=== PATIENT | male | born 1945 | race Caucasian/White ===

== ENCOUNTER 2016-08-20 10:42 | Emergency (ER) | payer MEDICARE, OTHER ==
[~2016-08-20] VITALS: Ht 175.3 cm; Wt 120.0 kg
[~2016-08-20 10:42] MED LIST: AMIT100 PO; ASPI81 PO; CYAN1000P IM; FINA5TAB77 PO; GABA300C3 PO; GLUC10TA3 PO; ISOS30 PO; PLAV75TA PO; RAPA8CAP PO; TERA5CAP3 PO; ZOCO40TA PO
[2016-08-20 10:48] VITALS: BP 138/88; PULSE 115; RESP 18; TEMP 98.2; O2SAT 97
--- NOTE | 2016-08-20 11:28 | PD ---
HPI Chief Complaint: Lump, Cyst, Hernia Time Seen by Provider: 11:26 Travel History International Travel<30 days: No Contact w/Intl Traveler<30days: No Traveled to known affect area: No History of Present Illness HPI Patient is a 70-year-old male presenting to emergency for evaluation of a left breast lump. Patient states it's been there for approximately a year and a half , he had a mammogram performed by the [place] which was negative. He states for the last 2 days it has become painful and red. He denies any fever, chills, nausea or vomiting, chest pain or shortness breath. PFSH Past Medical History Hx Anticoagulant Therapy: Yes (ASA 81 MG, PLAVIX) ADHD: No Asthma: Yes Blood Disorders: No Cancer: No Cardiac Catheterization: Yes (X 7) Cardiovascular Problems: Yes (SD X 1 ) High Cholesterol: Yes Chest Pain: Yes Congestive Heart Failure: Yes COPD: Yes Cerebrovascular Accident: Yes (TIA) Coronary Artery Disease: Yes Diabetes: Yes Patient Takes Glucophage: No Diminished Hearing: Yes (HEARING AIDS) Endocrine: No Gastrointestinal Disorders: No Hypertension: Yes Immune Disorder: No Kidney Stones: Yes Musculoskeletal: No Neurologic: Yes (STROKE) Psychiatric: No Reproductive: No Respiratory: Yes (EMPHYSEMA, CHF) Immunizations Current: Yes (WHOOPING COUGH 5 YRS. AGO) Myocardial Infarction: Yes Past Surgical History Abdominal Surgery: Yes (BILATERAL INGUINAL HERNIA REPAIR) AICD: No Arteriovenous Shunt: No Cardiac Surgery: Yes (HEART CATH 04/02- STENTS X 3) Coronary Artery Bypass Graft: Yes (stent x 3) Coronary Stent: Yes (X3) Insulin Pump: No Joint Replacement: No Pacemaker: No Other Surgery: Yes (PILONIDAL CYST REMOVED) Family History Family Hypercholesterolemia: Yes Social History Alcohol Use: No Tobacco Use: Yes (QUIT 20+ YEARS AGO) Substance Use: No Allergies-Medications (Allergen,Severity, Reaction): Coded Allergies: No Known Allergies (Verified , 08/20/16) Reported Meds & Prescriptions Reported Meds & Active Scripts Active Reported Spiriva Respimat Inh (Tiotropium Inh) 1.25 Mcg/Act Aero 2 Puff INH DAILY 1.25 mcg = 1 inhalation Terazosin (Terazosin HCl) 5 Mg Cap 5 Mg PO HS Zocor (Simvastatin) 40 Mg Tab 40 Mg PO DAILY Rapaflo (Silodosin) 8 Mg Cap 8 Mg PO DAILY Proair Hfa 8.5 GM Inh (Albuterol Sulfate) 90 Mcg/Act Aer 2 Puff INH Q4-6H PRN 108 mcg/actuation Potassium Citrate ER 15 Meq Tab 30 Meq PO DAILY Plavix (Clopidogrel Bisulfate) 75 Mg Tab 75 Mg PO DAILY Nitrostat SL (Nitroglycerin) 0.4 Mg Subl 0.4 Mg SL DIRECTED PRN 1 tablet under the tongue as needed for chest pain. Repeat every 5 minutes for a total of 3 DOSES or call 911 if NO relief. Mirapex (Pramipexole Dihydrochloride) 0.125 Mg Tab 0.125 Mg PO DAILY Lisinopril 5 Mg Tab 5 Mg PO DAILY Lasix (Furosemide) 20 Mg Tab 20 Mg PO DAILY Glucotrol (Glipizide) 10 Mg Tab 10 Mg PO DAILY Take 30 minutes before a meal Proscar (Finasteride) 5 Mg Tab 5 Mg PO DAILY Do not crush. Aspirin 81 (Aspirin) 81 Mg Tabdr 81 Mg PO DAILY Amitriptyline (Amitriptyline HCl) 100 Mg Tab 100 Mg PO DAILY Advair Diskus Inh (Fluticasone-Salmeterol Inh) 100-50 Mcg/Blist Aer Unknown Dose INH BID Rinse mouth after use. Review of Systems Except as stated in HPI: all other systems reviewed are Neg Musculoskeletal: Positive: Pain Skin: Positive Lumps Physical Exam Narrative GENERAL: Well-nourished, well-developed patient. SKIN: Warm and dry. 1 cm erythematous cyst to left breast at the 4 o'clock position. Tender to palpation. Fluctuant. HEAD: Normocephalic. EYES: No scleral icterus. No injection or drainage. NECK: Supple, trachea midline. No JVD or lymphadenopathy. CARDIOVASCULAR: Regular rate and rhythm without murmurs, gallops, or rubs. RESPIRATORY: Breath sounds equal bilaterally. No accessory muscle use. GASTROINTESTINAL: Abdomen soft, non-tender, nondistended. MUSCULOSKELETAL: No cyanosis, or edema. BACK: Nontender without obvious deformity. No CVA tenderness. Data Data Last Documented VS Vital Signs Date Time Temp Pulse Resp B/P Pulse Ox O2 Delivery O2 Flow Rate FiO2 08/20/16 10:48 98.2 115 18 138/88 97 Orders Wound Culture And Gram Stain (08/20/16 11:25) Lidocai-Epi 1%-1:100,000 Inj (Xylocaine- (08/20/16 11:30) MDM Medical Decision Making Medical Screen Exam Complete: Yes Emergency Medical Condition: Yes Interpretation(s) Vital Signs Date Time Temp Pulse Resp B/P Pulse Ox O2 Delivery O2 Flow Rate FiO2 08/20/16 10:48 98.2 115 18 138/88 97 Differential Diagnosis Sebaceous cyst versus abscess versus cellulitis versus malignancy versus other Narrative Course Patient is a 70-year-old male presenting to emergency department for evaluation of a cyst to his left breast that has been there for approximately year and a half and gotten painful and red over the last 2 days. Please see procedure for for I&D. Waxy white drainage was expressed from the abscess. Wound culture ordered and sent. Patient tolerated procedure well. Patient be placed on Keflex prophylactically. Patient was encouraged to follow-up with his primary doctor return to emergency department for any new or worsening symptoms. Patient verbalized understanding of these instructions. Patient is stable for discharge. Procedures Procedure Narrative After the risks and benefits were discussed the following procedure was performed: INCISION AND DRAINAGE OF ABSCESS: The area was prepped and was sterilely draped. A subcutaneous wheal of 1 % Xylocaine with a total number 2mL was used to anesthetize the area. The area was properly anesthetized. A number 11 scalpel was used to make a 1 -cm incision across the area of the abscess. Cultures were obtained. The abscess was drained an irrigated with normal saline. LACERATION LOCATION: Left breast status post I&D LENGTH: 1 centimeter NUMBER OF STITCHES/ADOLFO: 2 stitches REPAIR: The area of the laceration was prepped with Betadine and sterilely draped. The laceration was infiltrated with 1% Xylocaine. The wound was closed using 4-0 Vicryl. This was a 1 layer repair. A sterile dressing was applied. The patient was advised to keep the dressing clean and dry. Patient tolerated the procedure well. Diagnosis Primary Impression: Sebaceous cyst of breast Qualified Code: N60.82 - Sebaceous cyst of breast, left Additional Impressions: Cellulitis Qualified Code: L03.818 - Cellulitis of other specified site Encounter for incision and drainage procedure Referrals: Primary Care Physician Patient Instructions: Abscess (GEN), Abscess Incision and Drainage (ED), Cellulitis (ED), Cyst (ED), General Instructions Additional Instructions: Stitches will dissolve in approximately 7 days Complete full course of antibiotics as directed Keep area clean and dry, cover with Band-Aid Return to emergency department for any new or worsening symptoms such as increased redness, swelling, foul odor or drainage, fevers and chills. Follow-up with your primary doctor Med/Other Pt SpecificInfo: Prescription(s) given Scripts Oxycodone-Acetaminophen (Percocet)5-325 mg Tab1 Tab PO Q6H PRN (PAIN) #7 TAB Ref 0 Prov:Michael Stacy MD 08/20/16 Cephalexin (Keflex)500 Mg Tup017 Mg PO Q12H 5 Days Ref 0 Prov:Melany Luu 08/20/16 Disposition: 01 DISCHARGE HOME Condition: Stable Melany Luu Aug 20, 2016 11:28
[2016-08-20] MEDS ORDERED: LIDOCAINE 1%/EPINEPHrine 1:100,000 SOLN 20 ML VIAL INFIL ONE (11:30)
[2016-08-20] MEDS ORDERED: TIOT1AER2 INH (11:31)
[2016-08-20] MEDS ORDERED: LISI-519 PO (11:31)
[2016-08-20] MEDS ORDERED: POTA4.25 PO (11:31)
[2016-08-20] MEDS ORDERED: MIRA0.12 PO (11:31)
[2016-08-20] MEDS ORDERED: NITR0.4S SL (11:31)
[2016-08-20] MEDS ORDERED: BYST5TAB2 PO (11:31)
[2016-08-20] MEDS ORDERED: ALBUAER3 INH (11:31)
[2016-08-20] MEDS ORDERED: ASPI-110 PO (11:31)
[2016-08-20] MEDS ORDERED: TERA5CAP3 PO (11:31)
[2016-08-20] MEDS ORDERED: PROS5TAB PO (11:31)
[2016-08-20] MEDS ORDERED: ZOCO40TA PO (11:31)
[2016-08-20] MEDS ORDERED: AMIT100T2 PO (11:31)
[2016-08-20] MEDS ORDERED: RAPA8CAP PO (11:31)
[2016-08-20] MEDS ORDERED: PLAV75TA29 PO (11:31)
[2016-08-20] MEDS ORDERED: GLUC10TA3 PO (11:31)
[2016-08-20] MEDS ORDERED: ADVA100A INH (11:31)
[2016-08-20] MEDS ORDERED: FURO1TAB62 PO (11:31)
[2016-08-20] MEDS ORDERED: CEPH-460 PO (12:01)
[2016-08-20] MEDS ORDERED: PERC5TAB12 PO (12:02)
== END 2016-08-20 12:30 | disposition home or self-care (01) ==
LOC: PHED 10:42 → PHEFT 12:30
DX: N60.82 Other benign mammary dysplasias of left breast (principal); L03.90 Cellulitis, unspecified; J45.909 Unspecified asthma, uncomplicated; E11.9 Type 2 diabetes mellitus without complications; I10 Essential (primary) hypertension; Z79.01 Long term (current) use of anticoagulants
CPT/HCPCS: 10060; 86403; 87070; 87205

== ENCOUNTER 2017-06-27 10:06 | Emergency (ER) | payer MEDICARE, OTHER ==
[~2017-06-27] VITALS: Ht 175.3 cm; Wt 123.0 kg
[~2017-06-27 10:06] MED LIST changes: +ADVA100A INH; +ALBUAER3 INH; -AMIT100 PO; +AMIT100T2 PO; +ASPI1TAB57 PO; -ASPI81 PO; +CEPH-460 PO; -CYAN1000P IM; -FINA5TAB77 PO; +FURO1TAB62 PO; -GABA300C3 PO; -ISOS30 PO; +LISI-519 PO; +MIRA0.12 PO; +NITR0.4S SL; +PERC5TAB12 PO; -PLAV75TA PO; +PLAV75TA29 PO; +POTA4.25 PO; +PROS5TAB PO; +TIOT1AER2 INH
[2017-06-27 10:08] VITALS: BP 150/74; PULSE 98; RESP 20; TEMP 98.4; O2SAT 98
--- NOTE | 2017-06-27 10:25 | PD ---
HPI Chief Complaint: Cold / Flu Symptoms Time Seen by Provider: 10:14 Travel History International Travel<30 days: No Contact w/Intl Traveler<30days: No Traveled to known affect area: No History of Present Illness HPI 71-year-old male presents to the emergency department for evaluation of cold symptoms that started 2 days ago. Patient reports cough, congestion, rib pain with coughing only. He denies any fevers or chills. Patient presents with history of COPD and states this is his typical COPD exacerbation. He denies any chest pain or shortness of breath without coughing. No abdominal pain. Nausea, vomiting, diarrhea. Patient states that normally his doctor will give him a prescription for cough medicine, prednisone, antibiotic when he has these symptoms. No exacerbating or alleviating factors. Moderate severity. He has been using albuterol nebulizer and inhaler at home with improvement. PFSH Past Medical History Hx Anticoagulant Therapy: Yes (ASA 81 MG, PLAVIX) ADHD: No Asthma: Yes Blood Disorders: No Cancer: No Cardiac Catheterization: Yes (X 7) Cardiovascular Problems: Yes (3 stents) High Cholesterol: Yes Chest Pain: Yes Congestive Heart Failure: Yes COPD: Yes Cerebrovascular Accident: Yes (TIA) Coronary Artery Disease: Yes Diabetes: Yes (Metformin, Glypezide) Diminished Hearing: Yes (HEARING AIDS) Endocrine: No Gastrointestinal Disorders: No Hypertension: Yes Immune Disorder: No Kidney Stones: Yes Musculoskeletal: No Neurologic: Yes (STROKE) Psychiatric: No Reproductive: No Respiratory: Yes (COPD) Immunizations Current: Yes (WHOOPING COUGH 5 YRS. AGO) Myocardial Infarction: Yes Past Surgical History Abdominal Surgery: Yes (BILATERAL INGUINAL HERNIA REPAIR) AICD: No Arteriovenous Shunt: No Cardiac Surgery: Yes (HEART CATH 04/02- STENTS X 3) Coronary Artery Bypass Graft: Yes (stent x 3) Coronary Stent: Yes (X3) Insulin Pump: No Joint Replacement: No Pacemaker: No Other Surgery: Yes (PILONIDAL CYST REMOVED) Family History Family Hypercholesterolemia: Yes Social History Alcohol Use: No Tobacco Use: Yes (QUIT 20+ YEARS AGO) Substance Use: No Allergies-Medications (Allergen,Severity, Reaction): Coded Allergies: No Known Allergies (Verified Adverse Reaction, Unknown, 06/27/17) Reported Meds & Prescriptions Reported Meds & Active Scripts Active Percocet (Oxycodone-Acetaminophen) 5-325 mg Tab 1 Tab PO Q6H PRN Reported Spiriva Respimat Inh (Tiotropium Inh) 1.25 Mcg/Act Aero 2 Puff INH DAILY 1.25 mcg = 1 inhalation Terazosin (Terazosin HCl) 5 Mg Cap 5 Mg PO HS Zocor (Simvastatin) 40 Mg Tab 40 Mg PO DAILY Rapaflo (Silodosin) 8 Mg Cap 8 Mg PO DAILY Proair Hfa 8.5 GM Inh (Albuterol Sulfate) 90 Mcg/Act Aer 2 Puff INH Q4-6H PRN 108 mcg/actuation Potassium Citrate ER 15 Meq Tab 30 Meq PO DAILY Plavix (Clopidogrel Bisulfate) 75 Mg Tab 75 Mg PO DAILY Nitrostat SL (Nitroglycerin) 0.4 Mg Subl 0.4 Mg SL DIRECTED PRN 1 tablet under the tongue as needed for chest pain. Repeat every 5 minutes for a total of 3 DOSES or call 911 if NO relief. Mirapex (Pramipexole Dihydrochloride) 0.125 Mg Tab 0.125 Mg PO DAILY Lisinopril 5 Mg Tab 5 Mg PO DAILY Lasix (Furosemide) 20 Mg Tab 20 Mg PO DAILY Glucotrol (Glipizide) 10 Mg Tab 10 Mg PO DAILY Take 30 minutes before a meal Proscar (Finasteride) 5 Mg Tab 5 Mg PO DAILY Do not crush. Aspirin 81 (Aspirin) 81 Mg Tabdr 81 Mg PO DAILY Amitriptyline (Amitriptyline HCl) 100 Mg Tab 100 Mg PO DAILY Advair Diskus Inh (Fluticasone-Salmeterol Inh) 100-50 Mcg/Blist Aer Unknown Dose INH BID Rinse mouth after use. Review of Systems Except as stated in HPI: all other systems reviewed are Neg Physical Exam Narrative GENERAL: Well-nourished, well-developed male patient, ambulatory. Afebrile. SKIN: Focused skin assessment warm/dry. HEAD: Normocephalic. Atraumatic. EYES: No scleral icterus. No injection or drainage. NECK: Supple, trachea midline. No JVD or lymphadenopathy. CARDIOVASCULAR: Regular rate and rhythm without murmurs, gallops, or rubs. RESPIRATORY: Breath sounds equal bilaterally. No accessory muscle use. Dry, hacking cough noted. Lungs sounds are clear to auscultation. GASTROINTESTINAL: Abdomen soft, non-tender, nondistended. MUSCULOSKELETAL: No cyanosis, or edema. BACK: Nontender without obvious deformity. No CVA tenderness. Data Data Last Documented VS Vital Signs Date Time Temp Pulse Resp B/P (MAP) Pulse Ox O2 Delivery O2 Flow Rate FiO2 06/27/17 10:08 98.4 98 20 150/74 (99) 98 Orders Orders Chest, Single Ap (06/27/17 ) Prednisone (Deltasone) (06/27/17 10:30) MDM Medical Decision Making Medical Screen Exam Complete: Yes Emergency Medical Condition: Yes Medical Record Reviewed: Yes Interpretation(s) chest x-ray - CONCLUSION: No acute disease. Differential Diagnosis Bronchitis versus COPD exacerbation versus pneumonia versus URI Narrative Course 71-year-old male presents to the emergency department for evaluation of cough, COPD exacerbation for 2 days. He does appear well on exam. Patient is given prednisone 40 mg by mouth. Chest x-ray is ordered and pending. Chest x-ray [-]. Diagnosis Primary Impression: Upper respiratory infection Qualified Codes: J06.9 - Acute upper respiratory infection, unspecified Additional Impression: COPD (chronic obstructive pulmonary disease) Qualified Codes: J44.9 - Chronic obstructive pulmonary disease, unspecified Referrals: Primary Care Physician call for appointment Patient Instructions: COPD (Chronic Obstructive Pulmonary Disease) (ED), General Instructions, Upper Respiratory Infection (ED) Additional Instructions: Take antibiotic as directed until gone. Take prednisone as instructed. Start this tomorrow. Take cough syrup as directed as needed for cough. Caution this can make you drowsy. Follow-up with your primary care physician. Return to the emergency department for any acute worsening of symptoms. Med/Other Pt SpecificInfo: Prescription(s) given Scripts Codeine Phosphate/Guaifenesin (Guaifen-Codeine 100-10 mg/5 ml) 10 Mg-100 Mg/5 Ml Liquid 5-10 ML PO Q6HR Y for COUGH, #120 ML Prov: Mari Logan 06/27/17 Prednisone (Prednisone) 20 Mg Tab 40 MG PO DAILY for 5 Days, #10 TAB 0 Refills Prov: Mari Logan 06/27/17 Azithromycin (Zithromax Z-Tye) 250 Mg Dspk 250 MG PO DIRECTED for Infection, #1 DSPK 0 Refills 500 MG (2 tabs) day 1, then 1 tab days 2-5. Prov: Mari Logan 06/27/17 Disposition: 01 DISCHARGE HOME Condition: Stable Mari Logan Jun 27, 2017 10:25
[2017-06-27] MEDS ORDERED: predniSONE 20 MG TAB PO ONE (10:30)
--- NOTE | 2017-06-27 11:05 | RADRPT ---
EXAM DATE/TIME: 06/27/2017 10:40 [facility] COMPARISON: CHEST SINGLE AP, January 02, 2016, 10:32. INDICATIONS : Cough, congestion, chest pain with cough MEDICAL HISTORY : Chronic obstructive pulmonary disease. SURGICAL HISTORY : Cardiac stents ENCOUNTER: Initial ACUITY: 2 days PAIN SCORE: 6/10 LOCATION: Bilateral chest FINDINGS: A single view of the chest demonstrates the lungs to be symmetrically aerated without evidence of mas s, infiltrate or effusion. The cardiomediastinal contours are unremarkable. Osseous structures are intact. CONCLUSION: No acute disease. Obey Metz MD on June 27, 2017 at 11:03 Board Certified Radiologist. This report was verified electronically.
[2017-06-27] MEDS ORDERED: ZITHTAB PO (11:12)
[2017-06-27] MEDS ORDERED: GUAI100S5 PO (11:12)
[2017-06-27] MEDS ORDERED: PRED20 PO (11:12)
== END 2017-06-27 11:16 | disposition home or self-care (01) ==
LOC: PHEFT 10:06
DX: J06.9 Acute upper respiratory infection, unspecified (principal); J44.1 Chronic obstructive pulmonary disease with (acute) exacerbation; E11.9 Type 2 diabetes mellitus without complications; E78.00 Pure hypercholesterolemia, unspecified; I11.0 Hypertensive heart disease with heart failure; I50.9 Heart failure, unspecified; I25.10 Atherosclerotic heart disease of native coronary artery without angina pectoris; I25.2 Old myocardial infarction; Z86.73 Personal history of transient ischemic attack (TIA), and cerebral infarction without residual deficits; Z95.5 Presence of coronary angioplasty implant and graft; Z79.82 Long term (current) use of aspirin; Z95.1 Presence of aortocoronary bypass graft; Z79.84 Long term (current) use of oral hypoglycemic drugs
CPT/HCPCS: 71010; 99284; J7512

== ENCOUNTER 2017-07-04 15:55 | Emergency (ER) | payer MEDICARE, OTHER ==
[~2017-07-04] VITALS: Ht 175.3 cm; Wt 123.0 kg
[~2017-07-04 15:55] MED LIST changes: -CEPH-460 PO; +GUAI100S5 PO; +PRED20 PO; +ZITHTAB PO
[2017-07-04 15:57] VITALS: BP 127/58; PULSE 95; RESP 16; TEMP 98.6; O2SAT 99
--- NOTE | 2017-07-04 16:48 | PD ---
HPI Chief Complaint: Cold / Flu Symptoms Time Seen by Provider: 16:36 Travel History International Travel<30 days: No Contact w/Intl Traveler<30days: No Traveled to known affect area: No History of Present Illness HPI 71 y/o male with productive cough & wheezing 3 days. Patient has a history of COPD. He denies fever or chills. He reports similar symptoms in the past with bronchitis. He denies chest pain, palpitations, shortness of breath. Symptom severity is moderate. No aggravating or alleviating factors. PFSH Past Medical History Hx Anticoagulant Therapy: Yes (ASA 81 MG, PLAVIX) ADHD: No Asthma: Yes Blood Disorders: No Cancer: No Cardiac Catheterization: Yes (X 7) Cardiovascular Problems: Yes (3 stents) High Cholesterol: Yes Chest Pain: Yes Congestive Heart Failure: Yes COPD: Yes Cerebrovascular Accident: Yes (TIA) Coronary Artery Disease: Yes Diabetes: Yes (Metformin, Glypezide) Patient Takes Glucophage: Yes Diminished Hearing: Yes (HEARING AIDS) Endocrine: No Gastrointestinal Disorders: No Hypertension: Yes Immune Disorder: No Kidney Stones: Yes Musculoskeletal: No Neurologic: Yes (STROKE) Psychiatric: No Reproductive: No Respiratory: Yes (COPD) Immunizations Current: Yes (WHOOPING COUGH 5 YRS. AGO) Myocardial Infarction: Yes Influenza Vaccination: No Past Surgical History Abdominal Surgery: Yes (BILATERAL INGUINAL HERNIA REPAIR) AICD: No Arteriovenous Shunt: No Cardiac Surgery: Yes (HEART CATH 04/02- STENTS X 3) Coronary Artery Bypass Graft: Yes (stent x 3) Coronary Stent: Yes (X3) Insulin Pump: No Joint Replacement: No Pacemaker: No Other Surgery: Yes (PILONIDAL CYST REMOVED) Family History Family Hypercholesterolemia: Yes Social History Alcohol Use: No Tobacco Use: No (QUIT 20+ YEARS AGO) Substance Use: No Allergies-Medications (Allergen,Severity, Reaction): Coded Allergies: No Known Allergies (Verified Adverse Reaction, Unknown, 07/04/17) Reported Meds & Prescriptions Reported Meds & Active Scripts Active Tessalon Perles (Benzonatate) 100 Mg Cap 200 Mg PO TID PRN 3 Days Albuterol Neb (Albuterol Sulfate) 2.5 Mg/0.5 Ml Neb 2.5 Mg NEB TID NEB PRN Note: The Albuterol Sulfate Inhalation Solution is concentrated and must be diluted. Read complete instructions carefully before using. Prednisone 20 Mg Tab 40 Mg PO DAILY Take 40 mg (2 tablets) daily for 5 days Levaquin (Levofloxacin) 500 Mg Tablet 500 Mg PO DAILY 7 Days Guaifen-Codeine 100-10 mg/5 ml (Codeine Phosphate/Guaifenesin) 10 Mg-100 Mg/5 Ml Liquid 5-10 Ml PO Q6HR PRN Percocet (Oxycodone-Acetaminophen) 5-325 mg Tab 1 Tab PO Q6H PRN Reported Spiriva Respimat Inh (Tiotropium Inh) 1.25 Mcg/Act Aero 2 Puff INH DAILY 1.25 mcg = 1 inhalation Terazosin (Terazosin HCl) 5 Mg Cap 5 Mg PO HS Zocor (Simvastatin) 40 Mg Tab 40 Mg PO DAILY Rapaflo (Silodosin) 8 Mg Cap 8 Mg PO DAILY Proair Hfa 8.5 GM Inh (Albuterol Sulfate) 90 Mcg/Act Aer 2 Puff INH Q4-6H PRN 108 mcg/actuation Potassium Citrate ER 15 Meq Tab 30 Meq PO DAILY Plavix (Clopidogrel Bisulfate) 75 Mg Tab 75 Mg PO DAILY Nitrostat SL (Nitroglycerin) 0.4 Mg Subl 0.4 Mg SL DIRECTED PRN 1 tablet under the tongue as needed for chest pain. Repeat every 5 minutes for a total of 3 DOSES or call 911 if NO relief. Mirapex (Pramipexole Dihydrochloride) 0.125 Mg Tab 0.125 Mg PO DAILY Lisinopril 5 Mg Tab 5 Mg PO DAILY Lasix (Furosemide) 20 Mg Tab 20 Mg PO DAILY Glucotrol (Glipizide) 10 Mg Tab 10 Mg PO DAILY Take 30 minutes before a meal Proscar (Finasteride) 5 Mg Tab 5 Mg PO DAILY Do not crush. Aspirin 81 (Aspirin) 81 Mg Tabdr 81 Mg PO DAILY Amitriptyline (Amitriptyline HCl) 100 Mg Tab 100 Mg PO DAILY Advair Diskus Inh (Fluticasone-Salmeterol Inh) 100-50 Mcg/Blist Aer Unknown Dose INH BID Rinse mouth after use. Review of Systems Except as stated in HPI: all other systems reviewed are Neg General / Constitutional: No: Fever Eyes: No: Visual changes HENT: No: Headaches Cardiovascular: No: Chest Pain or Discomfort Respiratory: Positive: Cough, Wheezing Gastrointestinal: No: Abdominal Pain Genitourinary: No: Dysuria Physical Exam Narrative GENERAL: Alert and well-appearing 71-year-old male. SKIN: Warm and dry. HEAD: Normocephalic. EYES: No injection or drainage. NECK: Supple, trachea midline. No JVD or lymphadenopathy. CARDIOVASCULAR: Regular rate and rhythm without murmurs, gallops, or rubs. RESPIRATORY: Breath sounds equal bilaterally. No accessory muscle use. Rhonchorous cough. GASTROINTESTINAL: Abdomen soft, non-tender, nondistended. MUSCULOSKELETAL: No cyanosis, or edema. BACK: Nontender without obvious deformity. No CVA tenderness. Data Data Last Documented VS Vital Signs Date Time Temp Pulse Resp B/P (MAP) Pulse Ox O2 Delivery O2 Flow Rate FiO2 07/04/17 15:57 98.6 95 16 127/58 (81) 99 MDM Medical Decision Making Medical Screen Exam Complete: Yes Emergency Medical Condition: Yes Differential Diagnosis bronchitis, PNA, COPD exacerbation Narrative Course 71 y/o male with productive cough & wheezing. He is well appearing. Vital signs are stable. He has a ronchorous cough. No fever. He will be treated for bronchitis, COPD exacerbation. Diagnosis Primary Impression: Bronchitis Additional Impression: COPD with acute bronchitis Referrals: Primary Care Physician Additional Instructions: Medication as prescribed. Follow-up with primary doctor. Scripts Benzonatate (Tessalon Perles) 100 Mg Cap 200 MG PO TID Y for COUGH for 3 Days, CAP 0 Refills Prov: Karen Turpin 07/04/17 Albuterol Neb (Albuterol Neb) 2.5 Mg/0.5 Ml Neb 2.5 MG NEB TID NEB Y for SHORTNESS OF BREATH, #30 NEBULE 0 Refills Note: The Albuterol Sulfate Inhalation Solution is concentrated and must be diluted. Read complete instructions carefully before using. Prov: Karen Turpin 07/04/17 Prednisone (Prednisone) 20 Mg Tab 40 MG PO DAILY, #10 TAB 0 Refills Take 40 mg (2 tablets) daily for 5 days Prov: Karen Turpin 07/04/17 Levofloxacin (Levaquin) 500 Mg Tablet 500 MG PO DAILY for Infection for 7 Days, #7 TAB 0 Refills Prov: Karen Turpin 07/04/17 Disposition: 01 DISCHARGE HOME Condition: Stable Karen Turpin Jul 04, 2017 16:48
[2017-07-04] MEDS ORDERED: LEVA500T33 PO (16:53)
[2017-07-04] MEDS ORDERED: PRED20 PO (16:53)
[2017-07-04] MEDS ORDERED: ALBU.5I NEB (16:53)
[2017-07-04] MEDS ORDERED: BENZ100 PO (16:53)
== END 2017-07-04 17:04 | disposition home or self-care (01) ==
LOC: PHEFT 15:55
DX: J44.9 Chronic obstructive pulmonary disease, unspecified (principal); J20.9 Acute bronchitis, unspecified; I25.10 Atherosclerotic heart disease of native coronary artery without angina pectoris; I50.9 Heart failure, unspecified; E11.9 Type 2 diabetes mellitus without complications; Z79.84 Long term (current) use of oral hypoglycemic drugs; Z79.01 Long term (current) use of anticoagulants; Z95.1 Presence of aortocoronary bypass graft
CPT/HCPCS: 99284

== ENCOUNTER 2017-10-16 10:08 | Emergency (ER) | payer MEDICARE, OTHER ==
[~2017-10-16 10:08] MED LIST changes: +ALBU.5I NEB; +BENZ100 PO; +LEVA500T33 PO; -ZITHTAB PO
[2017-10-16 10:13] VITALS: BP 150/80; PULSE 104; RESP 16; TEMP 97.6; O2SAT 94
[2017-10-16] MEDS ORDERED: METF500T PO (10:45)
[2017-10-16] MEDS ORDERED: ISOS30TA3 PO (10:45)
[2017-10-16] MEDS ORDERED: PRAM0.12 PO (10:45)
[2017-10-16] MEDS ORDERED: LOSA50TA PO (10:45)
[2017-10-16] MEDS ORDERED: TAMS0.4C4 PO (10:45)
[2017-10-16] MEDS ORDERED: ATEN25TA PO (10:47)
--- NOTE | 2017-10-16 11:39 | PD ---
HPI Chief Complaint: Dizziness Time Seen by Provider: 11:35 Travel History International Travel<30 days: No Contact w/Intl Traveler<30days: No Traveled to known affect area: No History of Present Illness HPI 71-year-old male patient with history of CAD status post 3 stents, hypertension , diabetes, TIAs, presents to the ER today brought in by his because he has had episodes of dizziness and disorientation 2 days ago, and he states that these episodes have come and gone in the last few days although he is not currently having any symptoms. He denies any chest pains, shortness of breath, fevers, vomiting, or other symptoms. He states that on the day when it happened , it was before he visited his doctor's office, and had eaten, was told by his doctor to come to the ER yesterday to be evaluated but he states that he did not want to wait yesterday and came back today. He also had talked to the office of his biomedical engineering professor and was also told to be evaluated in the ER. Modifying Factors: None Associated Signs & Symptoms: Episodes of dizziness and disorientation Risk Factors: Elderly PFSH Past Medical History Hx Anticoagulant Therapy: Yes (ASA 81 MG, PLAVIX) ADHD: No Asthma: Yes Blood Disorders: No Cancer: No Cardiac Catheterization: Yes (X 7) Cardiovascular Problems: Yes (3 stents) High Cholesterol: Yes Chest Pain: Yes Congestive Heart Failure: Yes COPD: Yes Cerebrovascular Accident: Yes (TIA) Coronary Artery Disease: Yes Diabetes: Yes (Metformin, Glypezide) Patient Takes Glucophage: Yes Diminished Hearing: Yes (HEARING AIDS) Endocrine: No Gastrointestinal Disorders: No Hypertension: Yes Immune Disorder: No Kidney Stones: Yes Musculoskeletal: No Neurologic: Yes (STROKE) Psychiatric: No Reproductive: No Respiratory: Yes (COPD) Immunizations Current: Yes (WHOOPING COUGH 5 YRS. AGO) Myocardial Infarction: Yes Influenza Vaccination: Yes ?: Not Past Surgical History Abdominal Surgery: Yes (BILATERAL INGUINAL HERNIA REPAIR) AICD: No Arteriovenous Shunt: No Cardiac Surgery: Yes (HEART CATH 04/02- STENTS X 3) Coronary Artery Bypass Graft: Yes (stent x 3) Coronary Stent: Yes (X3) Insulin Pump: No Joint Replacement: No Pacemaker: No Other Surgery: Yes (PILONIDAL CYST REMOVED) Family History Family Hypercholesterolemia: Yes Social History Alcohol Use: No Tobacco Use: No (QUIT 20+ YEARS AGO) Substance Use: No Allergies-Medications (Allergen,Severity, Reaction): Coded Allergies: No Known Allergies (Verified Adverse Reaction, Unknown, 10/16/17) Reported Meds & Prescriptions Reported Meds & Active Scripts Active Albuterol Neb (Albuterol Sulfate) 2.5 Mg/0.5 Ml Neb 2.5 Mg NEB TID NEB PRN Note: The Albuterol Sulfate Inhalation Solution is concentrated and must be diluted. Read complete instructions carefully before using. Reported Atenolol 25 Mg Tab 25 Mg PO DAILY Pramipexole (Pramipexole Dihydrochloride) 0.125 Mg Tab 0.125 Mg PO HS Losartan (Losartan Potassium) 50 Mg Tab 50 Mg PO DAILY Isosorbide Mononitrate ER (Isosorbide Mononitrate) 30 Mg [place] 30 Mg PO DAILY Metformin (Metformin HCl) 500 Mg Tab 500 Mg PO BIDPC Tamsulosin (Tamsulosin HCl) 0.4 Mg Cap 0.4 Mg PO HS Spiriva Respimat Inh (Tiotropium Inh) 1.25 Mcg/Act Aero 2 Puff INH DAILY 1.25 mcg = 1 inhalation Proair Hfa 8.5 GM Inh (Albuterol Sulfate) 90 Mcg/Act Aer 2 Puff INH Q4-6H PRN 108 mcg/actuation Potassium Citrate ER 15 Meq Tab 30 Meq PO DAILY Plavix (Clopidogrel Bisulfate) 75 Mg Tab 75 Mg PO DAILY Nitrostat SL (Nitroglycerin) 0.4 Mg Subl 0.4 Mg SL DIRECTED PRN 1 tablet under the tongue as needed for chest pain. Repeat every 5 minutes for a total of 3 DOSES or call 911 if NO relief. Lasix (Furosemide) 20 Mg Tab 20 Mg PO DAILY Glucotrol (Glipizide) 10 Mg Tab 10 Mg PO DAILY Take 30 minutes before a meal Proscar (Finasteride) 5 Mg Tab 5 Mg PO DAILY Do not crush. Aspirin 81 (Aspirin) 81 Mg Tabdr 81 Mg PO DAILY Amitriptyline (Amitriptyline HCl) 100 Mg Tab 100 Mg PO DAILY Advair Diskus Inh (Fluticasone-Salmeterol Inh) 100-50 Mcg/Blist Aer Unknown Dose INH BID Rinse mouth after use. Review of Systems Except as stated in HPI: all other systems reviewed are Neg Physical Exam Narrative GENERAL: Well-developed elderly white male patient currently and no acute distress. Awake and oriented 3. SKIN: Focused skin assessment warm/dry. HEAD: Atraumatic. Normocephalic. EYES: Pupils equal and round. No scleral icterus. No injection or drainage. ENT: No nasal bleeding or discharge. Mucous membranes pink and moist. NECK: Trachea midline. No JVD. Supple. CARDIOVASCULAR: Regular rate and rhythm. No murmur appreciated. RESPIRATORY: No accessory muscle use. Clear to auscultation. Breath sounds equal bilaterally. GASTROINTESTINAL: Abdomen soft, non-tender, nondistended. Hepatic and splenic margins not palpable. MUSCULOSKELETAL: No obvious deformities. No clubbing. No cyanosis. No edema. NEUROLOGICAL: Awake and alert. No obvious cranial nerve deficits. Motor grossly within normal limits. Normal speech. PSYCHIATRIC: Appropriate mood and affect; insight and judgment normal. Data Data Last Documented VS Vital Signs Date Time Temp Pulse Resp B/P (MAP) Pulse Ox O2 Delivery O2 Flow Rate FiO2 10/16/17 11:52 93 16 145/77 (99) 93 16 133/65 (87) 93 16 149/67 (94) 10/16/17 10:13 97.6 94 Orders Orders Electrocardiogram (10/16/17 11:35) Complete Blood Count With Diff (10/16/17 11:35) Comprehensive Metabolic Panel (10/16/17 11:35) Ckmb (Isoenzyme) Profile (10/16/17 11:35) Troponin I (10/16/17 11:35) Urinalysis - C+S If Indicated (10/16/17 11:35) Ct Brain W/O Iv Contrast(Rout) (10/16/17 11:35) Ecg Monitoring (10/16/17 11:35) Iv Access Insert/Monitor (10/16/17 11:35) Oximetry (10/16/17 11:35) Sodium Chloride 0.9% Flush (Ns Flush) (10/16/17 11:45) Orthostatic Vital Signs (10/16/17 11:35) Urine Culture (10/16/17 12:15) Ed Discharge Order (10/16/17 13:07) Labs Laboratory Tests Test 10/16/17 11:45 10/16/17 12:15 White Blood Count 5.8 TH/MM3 Red Blood Count 4.85 MIL/MM3 Hemoglobin 14.3 GM/DL Hematocrit 44.0 % Mean Corpuscular Volume 90.7 FL Mean Corpuscular Hemoglobin 29.5 PG Mean Corpuscular Hemoglobin Concent 32.5 % Red Cell Distribution Width 12.7 % Platelet Count 240 TH/MM3 Mean Platelet Volume 7.5 FL Neutrophils (%) (Auto) 68.4 % Lymphocytes (%) (Auto) 20.0 % Monocytes (%) (Auto) 9.7 % Eosinophils (%) (Auto) 0.8 % Basophils (%) (Auto) 1.1 % Neutrophils # (Auto) 3.9 TH/MM3 Lymphocytes # (Auto) 1.1 TH/MM3 Monocytes # (Auto) 0.6 TH/MM3 Eosinophils # (Auto) 0.0 TH/MM3 Basophils # (Auto) 0.1 TH/MM3 CBC Comment DIFF FINAL Differential Comment Blood Urea Nitrogen 22 MG/DL Creatinine 0.95 MG/DL Random Glucose 126 MG/DL Total Protein 7.3 GM/DL Albumin 3.4 GM/DL Calcium Level 9.0 MG/DL Alkaline Phosphatase 103 U/L Aspartate Amino Transf (AST/SGOT) 16 U/L Alanine Aminotransferase (ALT/SGPT) 27 U/L Total Bilirubin 0.2 MG/DL Sodium Level 137 MEQ/L Potassium Level 4.1 MEQ/L Chloride Level 105 MEQ/L Carbon Dioxide Level 25.4 MEQ/L Anion Gap 7 MEQ/L Estimat Glomerular Filtration Rate 78 ML/MIN Total Creatine Kinase 78 U/L Troponin I LESS THAN 0.02 NG/ML Urine Collection Type CLEAN CATCH Urine Color YELLOW Urine Turbidity SL CLOUDY Urine pH 6.0 Urine Specific [place] 1.025 Urine Protein NEG mg/dL Urine Glucose (UA) NEG mg/dL Urine Ketones NEG mg/dL Urine Occult Blood SMALL Urine Nitrite POS Urine Bilirubin NEG Urine Urobilinogen 0.2 MG/DL Urine Leukocyte Esterase MOD Urine RBC 10-14 /hpf Urine WBC 100-200 /hpf Urine WBC Clumps FEW Urine Squamous Epithelial Cells 0-5 /hpf Urine Amorphous Sediment FEW Urine Bacteria MOD /hpf Microscopic Urinalysis Comment CULTURE INDICATED Urine Collection Time 1215 MDM Medical Decision Making Medical Screen Exam Complete: Yes Emergency Medical Condition: Yes Medical Record Reviewed: Yes Interpretation(s) EKG shows A. fib at a rate of 90 bpm with a right bundle branch block pattern. No signs of acute ST elevations or depressions. Laboratory Tests Test 10/16/17 11:45 4/21/18 12:15 Monocytes (%) (Auto) 9.7 % (0.0-8.0) Blood Urea Nitrogen 22 MG/DL (7-18) Random Glucose 126 MG/DL (74-106) Estimat Glomerular Filtration Rate 78 ML/MIN (>89) Troponin I LESS THAN 0.02 NG/ML Urine Occult Blood SMALL (NEG) Urine Nitrite POS (NEG) Urine Leukocyte Esterase MOD (NEG) Urine RBC 10-14 /hpf (0-3) Urine WBC 100-200 /hpf (0-5) Urine WBC Clumps FEW (NONE) Urine Bacteria MOD /hpf (NONE) Last [address] 10/16/17 1135 Signed Impressions: Service Date/Time: Wednesday, October 16, 2017 12:17 - CONCLUSION: Negative noncontrasted CT Nabil Fontenot MD Differential Diagnosis Hypokalemia ischemic episodes versus dysrhythmias versus acute intracranial processes versus dehydration versus metabolic issues Narrative Course CT the brain did not show any signs of acute intracranial processes. He does have a UTI which could be making him feel more disoriented. His lab work was otherwise fairly unremarkable. Cardiac enzymes are negative. Case was discussed with Dr. Lopez who is covering for his biomedical engineering professor, and he states that considering that the patient is having atrial fibrillation, patient should be on anticoagulation. He states that as long as the patient has not had his stents in the last year, patient can go on Eliquis. He would take him off of aspirin and Plavix meanwhile. I have talked to the patient and he states that his stents were many years ago. He has had no recent catheterization or stents in the last year. The patient will be released with scripts for Eliquis for the atrial fibrillation which may be new onset at this point. We will treat his UTI. We will have him eat on a regular basis to avoid any hypoglycemic episodes, and have him follow-up with his primary care physician and his biomedical engineering professor. Return for any worsening in symptoms as needed. I have had a discussion with him regarding possible risk of blood thinners like Eliquis, he should return for any abnormal bleeding, and as needed. Patient states understanding as well regarding risk and versus benefits of starting this medication. Diagnosis Primary Impression: New onset a-fib Additional Impression: UTI (urinary tract infection) Med/Other Pt SpecificInfo: Prescription(s) given, Med Stopped (Aspirin and Plavix) Scripts Apixaban (Eliquis) 5 Mg Tab 5 MG PO BID for Blood Clot Prevention, #20 TAB 0 Refills Prov: Kenn Andrew MD 10/16/17 Sulfamethoxazole-Trimethoprim (Bactrim DS) 800-160 Mg Tab 1 TAB PO BID for Infection, #14 TAB 0 Refills Prov: Kenn Andrew MD 10/16/17 Disposition: 01 DISCHARGE HOME Condition: Stable Kenn Andrew MD Oct 16, 2017 11:39
[2017-10-16] MEDS ORDERED: SODIUM CHLORIDE 0.9% FLUSH 10 ML FLUSH IVF PRN (11:45)
[2017-10-16 11:52] VITALS: BP_SYST 133; BP_SYST 145; BP_SYST 149; BP_DIAS 65; BP_DIAS 67; BP_DIAS 77; RESP 16
[2017-10-16 12:02] LABS: AUTOMATED NEUTROPHIL # 3.9 TH/MM3 (1.8-7.7); BASOPHIL # 0.1 TH/MM3 (0-0.2); BASOPHIL % 1.1 % (0.0-2.0); EOSINOPHIL % 0.8 % (0.0-4.0); HEMOGLOBIN 14.3 GM/DL (13.0-17.0); LYMPHOCYTE # 1.1 TH/MM3 (1.0-4.8); MEAN CELL VOLUME 90.7 FL (80.0-100.0); MEAN CORPUSCULAR HEMOGLOBIN 29.5 PG (27.0-34.0); MEAN CORPUSCULAR HGB CONC 32.5 % (32.0-36.0); MEAN PLATELET VOLUME 7.5 FL (7.0-11.0); MONO % 9.7 % (0.0-8.0); MONOCYTE # 0.6 TH/MM3 (0-0.9); NEUT % 68.4 % (16.0-70.0); PLATELET COUNT 240 TH/MM3 (150-450); RED BLOOD COUNT 4.85 MIL/MM3 (4.50-5.90); RED CELL DISTRIBUTION WIDTH 12.7 % (11.6-17.2); WHITE BLOOD COUNT 5.8 TH/MM3 (4.0-11.0)
[2017-10-16 12:13] LABS: CHLORIDE 105 MEQ/L (98-107); SODIUM (NA) 137 MEQ/L (136-145)
[2017-10-16 12:17] LABS: ALBUMIN 3.4 GM/DL (3.4-5.0); BICARBONATE 25.4 MEQ/L (21.0-32.0); BLOOD UREA NITROGEN 22 MG/DL (7-18); GLUCOSE,RANDOM 126 MG/DL (74-106)
[2017-10-16 12:20] LABS: ALT (GPT) 27 U/L (12-78); AST (GOT) 16 U/L (15-37); CREATININE 0.95 MG/DL (0.60-1.30); GLOMERULAR FILTRATION RATE 78 ML/MIN (>89)
[2017-10-16 12:21] LABS: TOTAL BILIRUBIN ADULT 0.2 MG/DL (0.2-1.0)
[2017-10-16 12:22] LABS: BILIRUBIN, URINE NEG (NEG); BLOOD, URINE SMALL (NEG); GLUCOSE,URINE NEG (NEG); KETONE, URINE NEG (NEG); NITRITE,URINE POS (NEG); URINE COLOR YELLOW (YELLW/STRAW); URINE LEUKOCYTE ESTERASE MOD (NEG)
[2017-10-16 12:22] LABS: TOTAL PROTEIN 7.3 GM/DL (6.4-8.2)
[2017-10-16 12:23] LABS: ALKALINE PHOSPHATASE 103 U/L (45-117)
[2017-10-16 12:25] LABS: TROPONIN I LESS THAN 0.02 NG/ML (0.02-0.05)
[2017-10-16 12:30] LABS: BACTERIA, URINE MOD /hpf; WBC, URINE 100-200 /hpf (0-5)
[2017-10-16 12:31] LABS: AMORPHOUS SEDIMENT, URINE FEW; SQUAMOUS EPITHELIAL CELL URINE 0-5 /hpf (0-5); WHITE BLOOD CELL CLUMPS FEW
--- NOTE | 2017-10-16 12:31 | RADRPT ---
EXAM DATE/TIME: 10/16/2017 12:17 [facility] COMPARISON: No previous studies available for comparison. INDICATIONS : Headache, dizziness. RADIATION DOSE: 62.78 CTDIvol (mGy) MEDICAL HISTORY : Cardiovascular disease. Hypercholesterolemia. Hypertension.CAD,COPD SURGICAL HISTORY : CABG Ing hernia ENCOUNTER: Initial ACUITY: 2 days PAIN SCALE: 7/10 LOCATION: cranial TECHNIQUE: Multiple contiguous axial images were obtained of the head. Using automated exposure control and adj ustment of the mA and/or kV according to patient size, radiation dose was kept as low as reasonably a chievable to obtain optimal diagnostic quality images. DICOM format image data is available electro nically for review and comparison. FINDINGS: CEREBRUM: The ventricles are normal for age. No evidence of midline shift, mass lesion, hemorrhage or acute in farction. No extra-axial fluid collections are seen. POSTERIOR FOSSA: The cerebellum and brainstem are intact. The 4th ventricle is midline. The cerebellopontine angle i s unremarkable. EXTRACRANIAL: The visualized portion of the orbits is intact. SKULL: The calvaria is intact. No evidence of skull fracture. CONCLUSION: Negative noncontrasted CT Nabil Fontenot MD on October 16, 2017 at 12:28 Board Certified Radiologist. This report was verified electronically.
[2017-10-16] MEDS ORDERED: APIX5TAB PO (13:12)
[2017-10-16] MEDS ORDERED: BACT800T5 PO (13:12)
[2017-10-16 13:22] VITALS: BP 140/83
--- NOTE | 2017-10-18 00:47 | EKG ---
Date Performed: 10/16/2017 Time Performed: 11:41:58 PTAGE: 71 years EKG: PROBABLE Sinus rhythm WITH PACS RIGHT BUNDLE BRANCH BLOCK ABNORMAL ECG PREVIOUS TRACING : 01/02/2016 16.39 Since the previous tracing, no significant change noted DOCTOR: Kristopher Pope Interpretating Date/Time 10/18/2017 00:47:07
== END 2017-10-16 13:27 | disposition home or self-care (01) ==
LOC: PHED 10:08
DX: I48.91 Unspecified atrial fibrillation (principal); N39.0 Urinary tract infection, site not specified; R94.31 Abnormal electrocardiogram [ECG] [EKG]; I25.10 Atherosclerotic heart disease of native coronary artery without angina pectoris; I11.0 Hypertensive heart disease with heart failure; I50.9 Heart failure, unspecified; E11.9 Type 2 diabetes mellitus without complications; E78.00 Pure hypercholesterolemia, unspecified; Z87.891 Personal history of nicotine dependence
CPT/HCPCS: 70450; 80053; 81001; 82550; 84484; 85025; 87086; 93005; 99285